=== PATIENT | male | born 1980 | race Caucasian/White ===

== ENCOUNTER 2018-07-05 17:06 | Emergency (ER) | payer OTHER, SELFPAY ==
[2018-07-05 17:06] VITALS: BMI 21.5
[2018-07-05 18:04] VITALS: RESP 18
[2018-07-05] MEDS ORDERED: Lidocaine 5% Patch TD STA (18:41)
--- NOTE | 2018-07-05 18:56 | ED PDOC ---
HPI: Back Time Seen by Provider: 07/05/18 18:05 Chief Complaint (Nursing): Back Pain Chief Complaint (Provider): Back Pain History Per: Patient, Diabetologist ([id number]) History/Exam Limitations: no limitations Current Symptoms Are (Timing): Still Present Additional Complaint(s): 38 year old male presents to the ED after he picked up a heavy object from the floor. Patient reports progressively worsening left sided lower back pain radiating down towards the left groin and left leg. Patient took 1 dose of Aleve yesterday and 1 dose today with minimal relief. He states pain is worse with walking. Denies fever, chills, nausea, vomiting, abdominal pain, incontinence, or weakness. PMD: none provided Past Medical History Reviewed: Historical Data, Nursing Documentation, Vital Signs Vital Signs: Last Vital Signs Temp 97.8 F 07/05/18 18:02 Pulse 69 07/05/18 18:02 Resp 18 07/05/18 18:02 BP 150/90 07/05/18 18:02 Pulse Ox 100 07/05/18 18:02 - Medical History PMH: HTN - Surgical History Surgical History: No Surg Hx - Family History Family History: States: Unknown Family Hx - Home Medications Home Medications: Ambulatory Orders Medication Instructions Recorded Aspirin [[place] Aspirin] 81 mg PO DAILY 01/13/16 Cyclobenzaprine [Cyclobenzaprine 10 mg PO Q8 PRN #10 tab 07/05/18 HCl] - Allergies Allergies/Adverse Reactions: Allergies Allergy/AdvReac Type Severity Reaction Status Date / Time No Known Allergies Allergy Verified 07/05/18 18:01 Review of Systems ROS Statement: Except As Marked, All Systems Reviewed And Found Negative Constitutional: Negative for: Fever, Chills Gastrointestinal: Negative for: Nausea, Vomiting, Abdominal Pain Genitourinary Male: Negative for: Incontinence Musculoskeletal: Positive for: Back Pain (Left side lower back pain radiating down to left groin and left leg) Neurological: Negative for: Weakness Physical Exam - Reviewed Nursing Documentation Reviewed: Yes Vital Signs Reviewed: Yes - Physical Exam Appears: Positive for: Non-toxic, No Acute Distress Respiratory: Positive for: Normal Breath Sounds. Negative for: Wheezing, Respiratory Distress Gastrointestinal/Abdominal: Positive for: Normal Exam, Soft. Negative for: Tenderness (to deep palpation) Back: Positive for: Normal Inspection, Muscle Spasm (Left side paralumbar muscle spasm with tenderness). Negative for: L CVA Tenderness, R CVA Tenderness Extremity: Positive for: Other (Bilateral lower extremity strength 5/5). Negative for: Calf Tenderness (bilaterally) Neurologic/Psych: Positive for: Alert, Oriented - ECG O2 Sat by Pulse Oximetry: 100 (RA) Pulse Ox Interpretation: Normal - Radiology X-Ray: Interpreted by Me (LS spine x-ray) X-Ray Interpretation: No Acute Disease - Progress Re-evaluation Time: 20:30 Condition: Re-examined, Improved Medical Decision Making Medical Decision Making: Initial Impression: Back pain Initial Plan: --Drug screen --Flexeril 10mg PO --Lidoderm 1 ea TD --Toradol 30mg IM --Spine X-ray --Urinalysis Scribe Attestation: Documented by Cale Gomez acting as a scribe for Asher OKEEFE Provider Scribe Attestation: All medical record entries made by the Scribe were at my direction and personally dictated by me. I have reviewed the chart and agree that the record accurately reflects my personal performance of the history, physical exam, medical decision making, and the department course for this patient. I have also personally directed, reviewed, and agree with the discharge instructions and disposition. Disposition - Clinical Impression Clinical Impression: Sciatica - Patient ED Disposition Is Patient to be Admitted: No - Disposition Referrals: [facility] [Outside] Disposition: Routine/Home Disposition Time: 20:30 Condition: IMPROVED Additional Instructions: VARINDER DALEY, thank you for letting us take care of you today. Your provider was Domingo Alexandra MD and you were treated for BACK PAIN. The emergency medical care you received today was directed at your acute symptoms. If you were prescribed any medication, please fill it and take as directed. It may take several days for your symptoms to resolve. Return to the Emergency Department if your symptoms worsen, do not improve, or if you have any other problems. Please contact your doctor or call one of the physicians/clinics you have been referred to that are listed on the Patient Visit Information form that is included in your discharge packet. Bring any paperwork you were given at discharge with you along with any medications you are taking to your follow up visit. Our treatment cannot replace ongoing medical care by a primary care provider outside of the emergency department. Thank you for allowing the [facility] team to be part of your care today. If you had an X-Ray or CT scan: A Radiologist will review the ED reading if any change in treatment is needed we will contact you. If you had a blood, urine, or wound culture: It will take several days for the results, if any change in treatment is needed we will contact you. If you had an STI test: It will take 48 hours for the results. Please call after 1 week if you have not heard back. Prescriptions: Cyclobenzaprine [Cyclobenzaprine HCl] 10 mg PO Q8 PRN #10 tab PRN Reason: Muscle Spasm Instructions: Sciatica (DC), Sciatica Exercises Forms: [employer] (English) Print Language: MALTESE
[2018-07-05] MEDS ORDERED: Lidocaine 5% Patch TD ONE (19:18)
[2018-07-05 20:12] LABS: URINE BACTERIA RARE (<OCC); URINE BILIRUBIN NEGATIVE (NEGATIVE); URINE BLOOD SMALL (NEGATIVE); URINE CLARITY CLEAR (Clear); URINE COLOR YELLOW (YELLOW); URINE GLUCOSE (UA) NEG (NEGATIVE); URINE LEUKOCYTE ESTERASE TRACE Leu/uL (Negative); URINE PROTEIN NEGATIVE (NEGATIVE); URINE UROBILINOGEN 0.2-1.0 mg/dL (0.2-1.0)
[2018-07-05 21:02] LABS: BARBITURATES, UR NEGATIVE (NEGATIVE); BENZODIAZEPINES, UR NEGATIVE (NEGATIVE); OPIATES, UR NEGATIVE (NEGATIVE); PHENCYCLIDINE, UR NEGATIVE (NEGATIVE)
[2018-07-06] VITALS: BP 130/78; PULSE 70; TEMP 98.2; O2SAT 99
--- NOTE | 2018-07-06 08:37 | RAD ---
Date of service: 07/05/2018 PROCEDURE: Radiographs of the Lumbar Spine. HISTORY: pain COMPARISON: No prior. FINDINGS: BONES: Normal alignment. No listhesis. No fracture. DISC SPACES: Unremarkable. OTHER FINDINGS: None. IMPRESSION: Unremarkable radiographs of the lumbar spine.
== END 2018-07-06 00:01 | disposition home or self-care (01) ==
LOC: H.ER 17:06
DX: M54.32 Sciatica, left side (principal)
CPT/HCPCS: 72100; 80324; 80345; 80346; 80349; 80353; 80358; 80361; 81003; 83992; 96372; 99283; J1885